=== PATIENT | female | born 1985 | race Caucasian/White ===

== ENCOUNTER 2019-11-11 08:47 | Emergency (ER) | payer OTHER ==
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
[2019-11-11] MEDS ORDERED: HYDROCODONE/ACETAMINOPHEN 5-325 MG TABLET PO ONE ×2 (10:48→15:29)
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
[2019-11-11] MEDS ORDERED: HYDROCODONE/ACETAMINOPHEN 5-325 MG (6 TAB/ER DISP) PO PRN (15:34)
[2019-11-11 15:51] VITALS: BP 128/68
== END 2019-11-11 15:51 | disposition home or self-care (01) ==
LOC: ER 08:47
DX: S22.31XA Fracture of one rib, right side, initial encounter for closed fracture (principal); S70.01XA Contusion of right hip, initial encounter; R10.813 Right lower quadrant abdominal tenderness; R10.814 Left lower quadrant abdominal tenderness; V49.40XA Driver injured in collision with unspecified motor vehicles in traffic accident, initial encounter; R91.8 Other nonspecific abnormal finding of lung field; F17.200 Nicotine dependence, unspecified, uncomplicated; F12.10 Cannabis abuse, uncomplicated; Z97.5 Presence of (intrauterine) contraceptive device
CPT/HCPCS: 74177; 81025; 99285